=== PATIENT | female | born 1980 | race Caucasian/White ===

== ENCOUNTER 2016-07-24 20:26 | Emergency (ER) | payer OTHER ==
[~2016-07-24] VITALS: Ht 165.1 cm; Wt 50.0 kg
[~2016-07-24 20:26] MED LIST: PREN1TAB47 PO; ZOL50 PO
[2016-07-24 20:46] VITALS: BP 109/70; PULSE 72; RESP 16; O2SAT 100
[2016-07-24 21:18] LABS: BASOPHILS % (AUTO) 0.3 % (0-3); EOSINOPHILS % (AUTO) 0.9 % (0-5); MONOCYTES % (AUTO) 7.7 % (4-12); Mean Corpuscular Hemoglobin 29.7 pg (27.0-35.0); Mean Corpuscular Volume 87.9 fL (81-100); NEUTROPHILS % (AUTO) 65.9 % (40-74); Platelet Count 199 bil/L (150-400)
[2016-07-24 21:39] LABS: APPEARANCE,URINE HAZY (CLEAR,HAZY); COLOR,URINE STRAW (YELLOW); OCCULT BLOOD,URINE NEGATIVE (NEGATIVE); UROBILINOGEN,URINE NORMAL (NORMAL)
[2016-07-24 21:40] LABS: Magnesium 2.4 mg/dL (1.6-2.6)
--- NOTE | 2016-07-24 22:51 | ED.REPORT ---
HPI-General Illness Date of Service Jul 24, 2016 ED Provider: Rosalino Reeves MD Pt is a 36 y.o. female with a hx of anxiety and ADHD who presents to the ED c/o intermittent bilateral lower extremity tingling onset 6 hours ago. Pt reports associated bilateral wrist tingling and numbness and lower extremity weakness. She states that she was in a spin class and every 30 seconds she would involuntarily stop herself. Upon getting off of the bike she noticed the tingling and weakness. She denies loss of sensation, muscle spasms, bladder/ bowel dysfunction, and headache. She also denies a hx of recent illness and back injury. Upon examination pt states sx have resolved. Pt reports drinking at least 15 8-ounce glasses of water per day. Nursing Notes Stated Complaint: RESTLESS/TINGLING LEGS, NUMBNESS IN HANDS/FEET Chief Complaint: General Complaint Nursing Notes Reviewed: Yes Allergies: Coded Allergies: No Known Allergies (Verified , 07/24/16) Scheduled Vit/Fe Fumarate/Fa-Expunged Drug, Do (-Expunged Drug, Do Not Renew!) 1 Tab Tablet 1 TAB PO DAILY Sertraline-Expunged Drug, Choose New Med! (Sertraline-Expunged Drug, Choose New Med!) 50 Mg Tab 50 MG PO DAILY General Time Seen by MD: 22:51 Chief Complaint Other (Tingling lower extremities, bilateral) Hx Obtained From: Patient Arrived By: Walk-in Sudden in Onset?: Yes Onset Occurred: 5 - 8 hours ago Symptom Duration: Intermittent Severity: Current: No pain currently Severity: Maximum: No pain Past Medical History Past Medical History ADHD Anxiety Past Surgical History Breast augmentation Ambulatory Status Independent Review of Systems Tingling lower extremities and wrists, bilaterally. No loss of sensation No muscle spasms Full Review of Systems Neurologic: Reports: Focal weakness (Lower extremities), Numbness (bilateral wrists), Denies: Bladder dysfunction, Bowel dysfunction, Headache Complete sys rev & neg: except as marked. Physical Exam Vital Signs Vital Signs Date Time Temp Pulse Resp B/P Pulse Ox O2 Delivery O2 Flow Rate FiO2 07/25/16 01:10 36.4 68 12 104/58 100 Room Air 07/25/16 00:59 68 12 104/58 100 Room Air 07/24/16 20:46 36.4 72 16 109/70 100 Room Air Initial VS: Reviewed Head / Eyes: Atraumatic, Normocephalic Extremities: Vascular intact, Neuro intact Skin: Warm, Dry, No cyanosis Psychiatric: Mood/affect normal, Behavior normal, Normal thought content General/Constitutional: Awake, Alert, No acute distress, Well appearing, Well developed, Well hydrated, Well nourished, Not toxic appearing Head / Eyes: Atraumatic, Normocephalic Respiratory / Chest: Atraumatic, Breath sounds NL, Breath sounds = bilat, No respiratory distress, No rales, No rhonchi, No wheezing Cardiovascular: Heart rate NL, Regular rhythm, Heart sounds NL, Peripheral circulation NL Abdomen: Atraumatic, Soft, Non-tender, No distention Neurologic: Oriented X3, Speech NL, No motor deficits, No sensory deficits Reflex Abnormality: Positive: Clonus present hyperreflexia, bilateral lower extremities Interpretation & Diagnostics Lab Results Interpretation Result Diagram: 07/24/16211007/24/162110 Test 07/24/16 21:11 07/24/16 21:18 White Blood Count 7.4th/mm3 (3.8-10.1) Red Blood Count 4.48mil/mm3 (3.90-5.20) Hemoglobin 13.3g/dL (12.0-15.6) Hematocrit 39.4% (35.0-46.0) Mean Corpuscular Volume 87.9fL (81-100) Mean Corpuscular Hemoglobin 29.7pg (27.0-35.0) Mean Corpuscular Hemoglobin Concent 33.8% (32.0-37.0) Red Cell Distribution Width 13.0% (12.3-15.4) Platelet Count 199bil/L (150-400) Neutrophils (%) (Auto) 65.9% (40-74) Lymphocytes (%) (Auto) 25.1% (14-46) Monocytes (%) (Auto) 7.7% (4-12) Eosinophils (%) (Auto) 0.9% (0-5) Basophils (%) (Auto) 0.3% (0-3) Sodium Level 134mEq/L (134-144) Potassium Level 3.6mEq/L (3.5-5.2) Chloride Level 99mEq/L (97-108) Carbon Dioxide Level 20mmol/L (18-29) Blood Urea Nitrogen 11mg/dL (6-20) Creatinine 0.91mg/dL (0.57-1.00) Estimat Glomerular Filtration Rate 99mL/min (>59) Glucose Level 128mg/dL (60-99) Calcium Level 8.8mg/dL (8.5-10.1) Magnesium Level 2.4mg/dL (1.6-2.6) Total Bilirubin 0.5mg/dL (0.0-1.2) Aspartate Amino Transf (AST/SGOT) 25U/L (0-50) Alanine Aminotransferase (ALT/SGPT) 23U/L (0-32) Alkaline Phosphatase 45U/L (25-150) Total Protein 7.0g/dL (6.4-8.4) Albumin 4.5g/dL (3.4-5.0) Hold Byrnes Top Tube Received (Received) Urine Color Straw (YELLOW) Urine Appearance Hazy (CLEAR,HAZY) Urine pH 8.0 (5.0-8.0) Urine Specific Davenport 1.003 (1.003-1.035) Urine Protein Negativemg/dL (NEG,TRACE) Urine Glucose (UA) Negativemg/dL (NEGATIVE) Urine Ketones Tracemg/dL (NEGATIVE) Urine Occult Blood Negative (NEGATIVE) Urine Nitrite Negative (NEGATIVE) Urine Bilirubin Negative (NEGATIVE) Urine Urobilinogen Normalmg/dL (NORMAL) Urine Leukocyte Esterase Negative (NEGATIVE) Urine RBC 0-2/hpf (0-2) Urine WBC 0-5/hpf (0-5) Urine Epithelial Cells Few/hpf (NONE-MOD) Urine Crystals None seen (NONE SEEN) Urine Bacteria Few/hpf (NONE-FEW) Urine Hyaline Casts None/lpf (NONE) Urine Granular Casts None seen (NONE SEEN) Urine Waxy Casts None seen (NONE SEEN) Urine Red Blood Cell Casts None seen (NONE SEEN) Urine White Blood Cell Casts None seen (NONE SEEN) Urine Mucus Present (None Seen) Urine Trichomonas None seen (NONE SEEN) Urine Yeast None (NONE SEEN) Urinalysis Comment None Urine Culture Reflexed Not indicated General Lab Results Interp 1: Labs reviewed and NL CT Head Interpretation CONCLUSION: Normal. Radiologist: David Adams MD. Re-Eval/Medical Decision Med Decision/Clinical Course Unusual cluster of symptoms during peak exercise for this extremely fit 36-year-old. She had sudden muscular spasms that by description sound like triggered reflex arcus that caused her to stop cycling. She had some tingling that was migratory summon her face on her hands in a glove distribution and some in her legs in a stocking distribution. This may have been hyperventilation, but almost surely is not a [employer] lesion, as there is no location in the central nervous system that would account for all of these symptoms. Also the symptoms of come and gone intermittently and/or therefore likely metabolic and not a lesional issue. CT is negative as expected. Would consider MRI of the cranium and also of the lumbar spine to exclude any other possible structural pathology. Again, strongly doubt multiple sclerosis, based on the rapid onset offset symptoms. She does have 2-3 beats of clonus on her ankle reflexes and no other abnormal findings on neurologic exam. Other possibility includes apparent migrainous syndrome, but I mostly expect this was because of metabolic derangement in the setting of extreme exercise, and potentially glycogen depletion in that setting. She is discharged now stable for follow-up with her primary care doctor. Source of Hx: Old records Time of Eval: 23:43 Re-Evaluation/Progress Note: Pt rechecked. Discussed lab results and plan for CT scan, pt understands and agrees with plan. Time of Eval: 01:06 Re-Evaluation/Progress Note: Pt rechecked. Discussed CT results and plan for discharge, pt understands and agrees with plan. Counseled Regarding: Diagnosis Discharge & Departure Primary Impression: Numbness and tingling of both legs Additional Impression: Complicated migraine Disposition: Home Discharge Condition All VS Reviewed: Yes Condition: Improved Additional Instructions: There is no single neurologic lesion that can account for all of your symptoms. It is almost surely metabolic in character. Whether that was from transient abnormalities of electrolytes, or glycogen depletion, or some other issue is not clear. The completion of your workup would include an MR of your head and your lumbar spine. Contact your doctor this morning for follow-up appointment and to schedule those two tests. The insurances will insist that the primary care doctor order these, and will deny payment if we try to set those up from here. Moderate your exercise slightly to avoid maximal exertion until the situation is further evaluated. I suggested you drink an electrolyte solution such as Powerade zero or Pedialyte or any of the many electrolyte supplements solutions available for comparative athletes. If you managed to deep suture glycogen stores and your liver, as is common in marathon running and other activities, protein and fat metabolism is much lower , and can make you hypoglycemic. Return for any immediate issues, particularly bowel or bladder incontinence, headache, or any other new symptoms of concern. Referrals: Jay Bravo MD (PCP) Scribe Attestation Portions of this note were transcribed by Jose Hurtado. I, Dr. Reeves personally performed the history, physical exam and medical decision-making; I reviewed and confirmed the accuracy of the information in the transcribed note. Signed by: Joyce Hassan, 07/25/16 and 0109. copies to: Jay Bravo MD, Christopher W MD Jul 24, 2016 22:51 JOSE HURTADO Jul 24, 2016 23:15
[2016-07-25 00:59] VITALS: BP 104/58; PULSE 68; RESP 12; O2SAT 100
[2016-07-25 01:10] VITALS: BP 104/58; PULSE 68; RESP 12; O2SAT 100
--- NOTE | 2016-07-25 09:36 | DRSVH ---
PROCEDURE: CT BRAIN WITHOUT CONTRAST ([id number]) INDICATIONS: acute bilat numbness and weakness TECHNIQUE: Noncontrast 4.5 mm thick angled axial sections acquired from the foramen magnum to the vertex, with c oronal reformats. COMPARISON: None. FINDINGS: Image quality: Excellent. CSF spaces: Basal cisterns are patent. No extra-axial fluid collections. Ventricles are normal in size and shape. Brain: No midline shift. No intracranial masses or hemorrhage. Calderon-white matter interface is norm al. Skull and face: Calvarium and visualized facial bones are intact, without suspicious lesions. Sinuses: Visualized sinuses and mastoids are clear. IMPRESSION: No acute intracranial disease process. Dictated by: Anisha Madsen MD, PhD on 07/25/2016 at 9:34 Approved by: Anisha Madsen MD, PhD on 07/25/2016 at 9:35
== END 2016-07-25 01:11 | disposition home or self-care (01) ==
LOC: SED 20:26
DX: R20.2 Paresthesia of skin (principal); G43.809 Other migraine, not intractable, without status migrainosus; M62.81 Muscle weakness (generalized); F41.9 Anxiety disorder, unspecified; F90.9 Attention-deficit hyperactivity disorder, unspecified type

== ENCOUNTER 2016-08-28 20:39 | Emergency (ER) | payer OTHER ==
[~2016-08-28] VITALS: Ht 165.1 cm; Wt 52.3 kg
[2016-08-28 20:56] VITALS: BP 119/62; PULSE 77; RESP 16; O2SAT 99
[2016-08-28] MEDS ORDERED: 0.9% Sodium Chloride 1,000 ML IV ONE (22:45)
--- NOTE | 2016-08-28 22:46 | ED.REPORT ---
HPI-General Illness Date of Service Aug 28, 2016 ED Provider: Kodak Li MD The patient is a 36 year old female who presents to the emergency department with a complex story. She was seen in the emergency department about 1 month ago for lower extremity numbness and weakness that she initially noticed in spin class. She had a head CT and labs that were unremarkable. She was diagnosed with hyperreflexia and discharged home with outpatient followup. Her regular doctor ordered an MRI that showed cervical spinal stenosis. In the last week the patient has noticed episodes of upper extremity cramping/ numbness/weakness and facial weakness. She can feel these episodes coming on. The episodes last a few hours at a time. She feels like she does not have as much strength in her upper extremities. Today she has noticed "burning" pain down her spine and she also has a rash. She denies incontinence. She was previously taking magnesium but discontinued this after her emergency department. She does not take any other regular medication. She has been eating normally. She does mention that she has been having diarrhea every day. She denies recent illnesses or recent travel. Her LNMP was about 2 weeks ago. Nursing Notes Stated Complaint: LEFT HAND UP TO SHOULDER TINGLING AND PAIN Chief Complaint: General Complaint Nursing Notes Reviewed: Yes Allergies: Coded Allergies: No Known Allergies (Verified , 07/24/16) Scheduled Vit/Fe Fumarate/Fa-Expunged Drug, Do (-Expunged Drug, Do Not Renew!) 1 Tab Tablet 1 TAB PO DAILY Sertraline-Expunged Drug, Choose New Med! (Sertraline-Expunged Drug, Choose New Med!) 50 Mg Tab 50 MG PO DAILY General Time Seen by MD: 21:35 Chief Complaint Multip medical complaints Hx Obtained From: Patient, Spouse Arrived By: Walk-in Sudden in Onset?: Yes Onset Occurred: More than a week ago... Symptom Duration: Intermittent Location: : Back Quality: Painful Severity: Current: Moderate Severity: Maximum: Moderate Recent Healthcare: No recent hospitalization, Recent doctor visit Similar Sx Previous: No Past Medical History Past Medical History ADHD Anxiety Past Surgical History Breast augmentation Family History Noncontributory Smoking History Unknown if Ever Smoker Social History Other Social History: Good social support, , Lives with children, Local resident Ambulatory Status Independent Review of Systems Full Review of Systems GI: Reports: Diarrhea Musculoskeletal: Reports: Back pain, Extremity pain, Neck pain Skin: Reports Rash Neurologic: Reports: Focal weakness, Numbness, Denies: Bladder dysfunction, Bowel dysfunction Complete sys rev & neg: except as marked. Physical Exam Vital Signs Vital Signs Date Time Temp Pulse Resp B/P Pulse Ox O2 Delivery O2 Flow Rate FiO2 08/28/16 20:56 36.8 77 16 119/62 99 Initial VS: Reviewed Head / Eyes: Atraumatic, Normocephalic, PERRL ENT: Mucous membranes moist, Conjunctiva normal, No scleral icterus Respiratory: Breath sounds normal, Clear to auscultation, No respiratory distress Cardiovascular: Regular rate & rhythm, Heart sounds normal, Intact distal pulses Abdomen / GI: Soft, Non-tender, No guarding, No rebound, No distention Extremities: No swelling Skin: Warm, Dry, No cyanosis Psychiatric: Mood/affect normal, Behavior normal, Normal thought content Neck: Atraumatic, Supple, No meningismus, Full range of motion, No swelling, Non-tender, No midline vertebral tend Back: Atraumatic, Inspection NL, Non-tender, No midline vertebral tend Neurologic: Oriented X3, Speech NL [employer] strength is 5/5 bilaterally. Sensation is diminished to her left upper extremity. No pronator drift. Slightly hyperreflexic. Sensation intact to her lower extremities. 5/5 strength to her lower extremities. Normal gait. Negative Romberg testing. Interpretation & Diagnostics Lab Results Interpretation Result Diagram: 08/28/16 2318 08/28/16 2318 Test 08/28/16 23:18 White Blood Count 6.8th/mm3 (3.8-10.1) Red Blood Count 4.20mil/mm3 (3.90-5.20) Hemoglobin 12.5g/dL (12.0-15.6) Hematocrit 37.5% (35.0-46.0) Mean Corpuscular Volume 89.3fL (81-100) Mean Corpuscular Hemoglobin 29.8pg (27.0-35.0) Mean Corpuscular Hemoglobin Concent 33.3% (32.0-37.0) Red Cell Distribution Width 13.5% (12.3-15.4) Platelet Count 180bil/L (150-400) Neutrophils (%) (Auto) 57.3% (40-74) Lymphocytes (%) (Auto) 32.6% (14-46) Monocytes (%) (Auto) 8.0% (4-12) Eosinophils (%) (Auto) 1.9% (0-5) Basophils (%) (Auto) 0.1% (0-3) Sodium Level 136mEq/L (134-144) Potassium Level 3.5mEq/L (3.5-5.2) Chloride Level 103mEq/L (97-108) Carbon Dioxide Level 19mmol/L (18-29) Blood Urea Nitrogen 8mg/dL (6-20) Creatinine 0.72mg/dL (0.57-1.00) Estimat Glomerular Filtration Rate 130mL/min (>59) Glucose Level 89mg/dL (60-99) Calcium Level 8.6mg/dL (8.5-10.1) Magnesium Level 2.2mg/dL (1.6-2.6) Total Bilirubin 0.4mg/dL (0.0-1.2) Aspartate Amino Transf (AST/SGOT) 25U/L (0-50) Alanine Aminotransferase (ALT/SGPT) 22U/L (0-32) Alkaline Phosphatase 51U/L (25-150) Total Protein 6.6g/dL (6.4-8.4) Albumin 4.1g/dL (3.4-5.0) Re-Eval/Medical Decision Med Decision/Clinical Course The patient is a 36 year old female who presents to the emergency department with a complex story. She was seen in the emergency department about 1 month ago for lower extremity numbness and weakness that she initially noticed in spin class. She had a head CT and labs that were unremarkable at that time. She was diagnosed with "hyperreflexia" and discharged home with outpatient followup. Her regular doctor ordered an MRI that showed mild cervical spinal stenosis was generally unremarkable. In the last week the patient has noticed episodes of upper extremity cramping/ numbness/weakness and facial weakness. She can feel these episodes coming on. The episodes last a few hours at a time. She feels like she does not have as much strength in her upper extremities. Today she has noticed "burning" pain down her spine. She denies incontinence. She was previously taking magnesium but has reduced the dose of this this after her emergency department. She does not take any other regular medication. She has been eating normally. She does mention that she has been having diarrhea every day which she attributes to her magnesium supplements. She denies recent illnesses or recent travel. Her LNMP was about 2 weeks ago. Here in the emergency department she is afebrile and hemodynamically stable. Her neurologic examination is essentially unremarkable with good strength in all 4 extremities. She does have slightly hyperreflexic patellar reflexes those without saddle anesthesia urinary retention or incontinence. There are no findings did not seemingly suggestive of central cord compressive lesion on my examination. While her cervical spine MRI did reveal some mild canal stenosis this is nothing that would explain her vague constellation of symptoms. The overall presentation is not suggestive of meningitis or encephalitis and I do not feel that lumbar puncture is indicated. The constellation of symptoms is not classically suggestive of any neurodegenerative demyelinating disorder. Episodes come on without any apparent trigger toward discrete and then completely resolve. While this is somewhat atypical it is also reassuring against a progressive degenerative process. Here I obtained a CBC as well as a metabolic panel, magnesium, potassium and calcium levels all of which were within normal limits. The patient does seem to have a high level of anxiety and I wonder if some of her symptoms may be related to panic/hyperventilation though at this time I cannot definitively attribute all of her symptoms to this. I feel that she would benefit from further workup by a neurologist. She has been referred to one. This time I feel that she is appropriate for discharge. Prior to discharge follow-up and return precautions were reviewed in detail with the patient who verbalized understanding and agreement with the plan. The patient was discharged in stable condition. Source of Hx: Old records, Family Time of Eval: 22:50 Re-Evaluation/Progress Note: Discussed plan for workup. All questions were addressed. Re-Evaluation/Progress Note: Rechecked the patient. Discussed lab results, diagnosis, and plan for disposition. All questions were addressed. Counseled Regarding: Diagnosis, Lab results, Need for follow-up, When/why to return to ED Discharge & Departure Primary Impression: Limb cramps Additional Impressions: Tingling in extremities Muscle spasms of both lower extremities Anxiety Diarrhea Diarrhea type: unspecified type Qualified Code: R19.7 - Diarrhea, unspecified Disposition: Home Discharge Condition All VS Reviewed: Yes Condition: Stable Additional Instructions: Thank you for seeking care at the emergency room. Our primary goal today in the ED was to evaluate you for any life-threatening conditions. Your evaluation was reassuring. You need to followup with a neurologist in the next few weeks. We have given you a referral to Dr. Gann. Call her office tomorrow to schedule an appointment. You should return to the ED immediately if you develop worsening symptoms, increased pain, confusion, slurred speech, visual changes, or any other concerning signs or symptoms. Thank you for letting us partake in your care today. Referrals: Jay Bravo MD (PCP) Telma Gann MD Attestation Portions of this note were transcribed by Yanelis Candelario. I, Dr. Li personally performed the history, physical exam and medical decision-making; I reviewed and confirmed the accuracy of the information in the transcribed note. Signed by: Joyce Loyd, 08/28/2016 at 0001. copies to: Jay Bravo MD; Telma Gann MD, Beck O MD Aug 28, 2016 22:46 Yanelis Candelario Aug 28, 2016 22:48
[2016-08-28 23:25] LABS: BASOPHILS % (AUTO) 0.1 % (0-3); EOSINOPHILS % (AUTO) 1.9 % (0-5); Mean Corpuscular Hemoglobin 29.8 pg (27.0-35.0); Mean Corpuscular Volume 89.3 fL (81-100); NEUTROPHILS % (AUTO) 57.3 % (40-74); Platelet Count 180 bil/L (150-400)
[2016-08-28 23:55] LABS: Magnesium 2.2 mg/dL (1.6-2.6)
[2016-08-29 00:30] VITALS: BP 118/68; PULSE 72; RESP 14; O2SAT 98
== END 2016-08-29 00:40 | disposition home or self-care (01) ==
LOC: SED 20:39
DX: R25.2 Cramp and spasm (principal); M62.838 Other muscle spasm; F41.9 Anxiety disorder, unspecified; R19.7 Diarrhea, unspecified; R20.2 Paresthesia of skin
CPT/HCPCS: 36415; 80053; 83735; 85025; 96360; 99284; J7030